=== PATIENT | female | born 1970 | race Caucasian/White ===

== ENCOUNTER 2017-04-18 22:03 | Inpatient (IN) | payer BC ==
--- NOTE | ~2017-04-18 | HP ---
History And Physical [id number] [place]. [address] NAME: CHRISTINA VÁSQUEZ : 74 STATUS : ADM IN [facility]#: [id number] AGE: 46 ADM/REG DATE : 04/19/17 MR#: [id number] REPORT SERV DATE: 04/19/17 DICTATED BY: ROBERT COLLADO DATE: 04/19/17 REPORT STATUS : Draft TRANSCRIBED BY: MODShaggy DATE: 04/19/17 DATE OF ADMISSION: 04/19/2017 POINT OF ENTRY: [facility] Emergency Department CHIEF COMPLAINT: Abdominal pain and nausea. HISTORY OF PRESENT ILLNESS: Ms. Vásquez is a 46-year-old female with a history of bladder exstrophy, status post ureterosigmoidostomy who presents to the emergency department today with the acute onset of bilateral lower quadrant left greater than right back pain with associated nausea with radiation of the pain to her back concerning for possible kidney stones. The patient has a history of bladder exstrophy, status post ureterosigmoidostomy at [facility] as a child. This procedure was then complicated by a small-bowel obstruction as a child as well as requirement of a revision of the anastomosis of the ureters and finally a [id number] trans-ureterosigmoidostomy for right-sided ureteral obstruction. The patient has a history of frequent urinary tract infections and pyelonephritis for which she takes antibiotics on as needed basis for. The patient states that she has not had any difficulties with small-bowel obstruction as an adult. Has known history of nephrolithiasis. Beginning at approximately 5:30 this evening, she started to notice some queasiness and nausea and then developed some left greater than right lower quadrant crampy type abdominal pain. This pain then worsened to a 9 to 10 out of 10 in severity, described as a hard abdominal pain, also with radiation to the left lower flank and back region making her concerned this could be recurrence of known history of nephrolithiasis. She denies any fevers, night sweats, chills, or vomiting. Initial evaluation in the emergency department notable for stable vital signs. Labs are unremarkable with a normal white count and normal CMP. CT scan of the abdomen and pelvis shows bilateral nonobstructing nephrolithiasis as well as a high-grade proximal small-bowel obstruction with reported small bowel stool sign, likely secondary to adhesions. Of note, this is a virtual Radiology overnight read, a formal report needs to be followed up in the morning. The patient was subsequently admitted to the Hospitalist Service for further evaluation and management. REVIEW OF SYSTEMS: Comprehensive review of systems, otherwise negative unless listed in history of present illness. PREVIOUS MEDICAL HISTORY: 1. Bladder exstrophy, status post ureterosigmoidostomy with multiple revisions. 2. Nephrolithiasis. 3. History of recurrent pyelonephritis. 4. History of metabolic acidosis, currently on Bicitra. History And Physical [address] [address] NAME: CHRISTINA VÁSQUEZ : 74 STATUS : ADM IN [facility]#: [id number] AGE: 46 ADM/REG DATE : 04/19/17 MR#: [id number] REPORT SERV DATE: 04/19/17 DICTATED BY: ROBERT COLLADO DATE: 04/19/17 REPORT STATUS : Draft TRANSCRIBED BY: MODL DATE: 04/19/17 5. History of small obstruction as a child. 6. Chronic kidney disease stage 2. 7. Gastroesophageal reflux disease. 8. Hypertension. 9. Left breast ductal carcinoma in situ. SURGICAL HISTORY: 1. Ureterosigmoidostomy with subsequent anastomotic revision and [id number] trans- ureterosigmoidostomy. 2. Cystectomy. 3. . 4. Mohs surgery for basal cell carcinoma. 5. Inguinal hernia repair. 6. Left stereotactic breast biopsy. ALLERGIES: TO SCOPOLAMINE AND VANCOMYCIN. HOME MEDICATIONS: 1. Aspirin 81 mg daily. 2. Labetalol 100 mg b.i.d. 3. Protonix 40 mg daily. 4. Sodium bicarb 1350 mg b.i.d. SOCIAL HISTORY: Denies any tobacco, occasional social alcohol use. Denies any illicits. She is an internal medicine physician, works here as the hospitalist. Her is a vascular surgeon here at our facility. FAMILY MEDICAL HISTORY: Father with hypertension as well as Parkinson disease. Siblings with asthma. LABS AND IMAGIN. White count is 6.9, hemoglobin is 10.9, hematocrit is 32.1, platelets 213. 2. Sodium 140, potassium 4.0, chloride 110, carbon dioxide 26, BUN 16, creatinine 1.01, glucose is 92, calcium is 8.5. Protein is 6.4, albumin is 3.8, bilirubin is 0.6, ALT is 28, AST 16, alkaline phosphatase is 44. 3. CT scan of the abdomen and pelvis per overnight virtual radiology read states a high- grade proximal to mid small-bowel obstruction with small bowel stool sign in the lower abdomen, presumably secondary to adhesion. PHYSICAL EXAMINATION: VITAL SIGNS: Temperature is 98.0 degrees Fahrenheit, pulse is 80, respirations 20, saturating 90% on room air, blood pressure 156/97. On recheck, blood pressure now 139/82, pulse of 60 to 70. GENERAL: The patient is awake, alert, in no acute distress. Resting comfortably. She is a well-developed, well-nourished female. is currently at bedside. HEENT: Atraumatic, normocephalic. Moist mucous membranes. Pupils equal, round, and reactive to light and accommodation. Extraocular eye movements intact. No scleral icterus. History And Physical [address] [address] NAME: CHRISTINA VÁSQUEZ : 74 STATUS : ADM IN [facility]#: [id number] AGE: 46 ADM/REG DATE : 04/19/17 MR#: [id number] REPORT SERV DATE: 04/19/17 DICTATED BY: ROBERT COLLADO DATE: 04/19/17 REPORT STATUS : Draft TRANSCRIBED BY: CHRISTINE DATE: 04/19/17 NECK: No jugular venous distention. No carotid bruits. CARDIAC: Regular rate and rhythm. No murmurs or gallops. Normal S1, S2. LUNGS: Clear to auscultation bilaterally. No wheezes, rhonchi, or crackles. ABDOMEN: The patient has multiple abdominal incisions that are well healed and clean, dry, and intact. She has hypoactive almost absent bowel sounds throughout. It is diffusely tender to palpation, more so in the left lower quadrant, but no rebound, guarding, or rigidity. EXTREMITIES: Warm, perfused. No cyanosis, clubbing, or edema. SKIN: Warm and dry. PSYCH: Affect appropriate. NEURO: Alert and oriented x3. Cranial nerves II through XII grossly intact. Speech is normal. Gait not assessed. ASSESSMENT: Ms. Vásquez is a 46-year-old female with a history of multiple intraabdominal surgeries who presents with acute onset of lower quadrant abdominal pain and nausea and found to have evidence of a high-grade small-bowel obstruction. Problem list: 1. High-grade small-bowel obstruction. 2. History of bladder exstrophy, status post ureterosigmoidostomy. PLAN: 1. High-grade small-bowel obstruction. We will admit the patient to the Hospitalist Service. Make the patient nothing by mouth for bowel rest. Provide supportive care with IV fluids, antiemetics, and pain control. We will consult General Surgery in the morning for assistance with management. The patient currently is denying any vomiting and her pain and nausea well controlled with medications. We will hold off on NG tube decompression at this time. We will recheck a KUB in the morning. 2. History of ureterosigmoidostomy. The patient does not have any evidence of pyelonephritis at this time. Her white count is normal. She is afebrile and we suspect that her symptoms are all related to the above mentioned. We will hold off on antibiotics at this time. 3. History of nephrolithiasis. There is evidence of nephrolithiasis on CT imaging, but they are nonobstructing and likely not source of the patient's symptoms. 4. Hypertension. Continue the patient's home antihypertensives. 5. History of metabolic acidosis. Continue the patient's home Bicitra. The patient's bicarb is currently 26. 6. Deep venous thrombosis prophylaxis. Lovenox subcu. CODE STATUS: The patient wishes to be full code. CINDY/CHRISTINE Robert Collado MD History And Physical [address] [address] NAME: CHRISTINA VÁSQUEZ : 74 STATUS : ADM IN [facility]#: [id number] AGE: 46 ADM/REG DATE : 04/19/17 MR#: [id number] REPORT SERV DATE: 04/19/17 DICTATED BY: ROBERT COLLADO DATE: 04/19/17 REPORT STATUS : Draft TRANSCRIBED BY: CHRISTINE DATE: 04/19/17 / [id number] CC: Lee Hedrick M.D.
--- NOTE | ~2017-04-18 | CN ---
Consultation Report [facility] [address] [place]. [address] NAME: CHRISTINA VÁSQUEZ : 74 STATUS : ADM IN [facility]#: [id number] AGE: 46 ADM/REG DATE : 04/19/17 MR#: [id number] REPORT SERV DATE: 04/19/17 DICTATED BY: SARTHAK BAH DATE: 04/19/17 REPORT STATUS : Draft TRANSCRIBED BY: MODL DATE: 04/19/17 CONSULTATION DATE OF CONSULTATION: 04/19/2017 REASON FOR CONSULT: Small bowel obstruction. 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 She has a history of multiple operations for bladder exstrophy including a ureterosigmoidostomy. She has had a previous hospital admission for kidney stones as well as what sound like a partial small bowel obstruction back in 2012. She states that yesterday, she had severe onset of midepigastric pain as well as nausea. She tended to ride this out but the pain worsened, so she came to the [employer]. She has not had any nausea or vomiting, and states that the pain today is a little bit better than it was yesterday. She has had no fever or chills, and states prior to yesterday, she was feeling well. In addition, she did eat what sounds like several carrots yesterday. She has not had any significant diarrhea, although she had a ureterosigmoidostomy that is unchanged in consistency. PAST MEDICAL HISTORY: Bladder exstrophy, pyelonephritis, chronic kidney disease, reflux, hypertension, DCIS. PAST SURGICAL HISTORY: Includes ureterosigmoidostomy with anastomotic revision, cystectomy, C-sections, inguinal hernia repair. MEDICATIONS: Aspirin, labetalol, Protonix, sodium bicarb. SOCIAL HISTORY: The patient is . Denies any recent tobacco use. Drinks occasional alcohol. FAMILY HISTORY: Noncontributory. PHYSICAL EXAMINATION: VITAL SIGNS: She is afebrile. Vital signs are stable. GENERAL: She is awake, alert, very pleasant, 46-year-old white female. HEENT: Grossly normal. NECK: Supple. No palpable masses. HEART: Regular rate and rhythm. LUNGS: Clear. ABDOMEN: Soft and nondistended. Mild left upper quadrant tenderness with palpation. She states this is better previously. No palpable masses. EXTREMITIES: Show no cyanosis, clubbing, or edema. IMAGING: CT of the abdomen, which I have reviewed, shows what looks to be some fecalization Consultation Report [facility] [address] [place] [place] [address] NAME: CHRISTINA VÁSQUEZ : 74 STATUS : ADM IN PAT#: [id number] AGE: 46 ADM/REG DATE : 04/19/17 MR#: [id number] REPORT SERV DATE: 04/19/17 DICTATED BY: SARTHAK BAH DATE: 04/19/17 REPORT STATUS : Draft TRANSCRIBED BY: MODL DATE: 04/19/17 of the small bowel at the mid to proximal jejunum with some dilated small bowel proximal. Laboratory workup is essentially unremarkable. IMPRESSION AND PLAN: 46-year-old white female with the above-mentioned previous abdominal surgeries, now with what looks to be a partial small bowel obstruction, which I suspect is secondary to vegetable matter. I suspect this hopefully will resolve without surgical intervention. Given that her symptoms are slightly improved, we are going to hold off on any further imaging or active workup. If her symptoms are not fully resolved by tomorrow, we will order a Gastrografin study with a small bowel follow-through. This was discussed with her in detail. I think it is okay at this point to sip on water. PITO/CHRISTINE Sarthak Bah M.D. / [id number] CC: Lee Hderick M.D.
--- NOTE | ~2017-04-18 | DS ---
Discharge Summary [id number] [place]. [address] NAME: CHRISTINA ALLEN : 74 STATUS : ADM IN [facility]#: [id number] AGE: 46 ADM/REG DATE : 04/19/17 MR#: [id number] REPORT SERV DATE: 04/20/17 DICTATED BY: Adriana WHITFIELD DATE: 04/20/17 REPORT STATUS : Draft TRANSCRIBED BY: MODL DATE: 04/20/17 ADMISSION DATE: 04/19/2017 DISCHARGE DATE: 04/20/2017 DIAGNOSES AT DISCHARGE: Partial small bowel obstruction, resolved; history of renal stones; history of pyelonephritis; history of iron deficiency anemia; hypertension; and chronic metabolic acidosis. CONSULTATIONS: General Surgery. PROCEDURES: None. BRIEF SUMMARY: 46-year-old female patient admitted with abdominal pain and imaging suggesting bowel obstruction. The patient with multiple previous surgeries due to problems with her ureters and subsequent stenosis. The patient was treated conservatively with bowel rest and IV fluids. General Surgery did see and evaluate the patient. They felt this condition is likely chronic and will not require additional surgery. Over the course of the day with hydration, the patient's symptoms markedly improved. Last evening, she was started on clear liquids. This morning, she ate a regular breakfast without difficulty. She was felt stable to discharge home. Per General Surgery, to be on a low residue diet, and to continue her current home medications. She will follow up with her primary care provider in approximately three to four weeks. Further recommendations for ongoing treatment pending outpatient evaluation. DICTATED BY: Adriana Whitfeild M.D. [facility]/CHRISTINE Adriana Whitfield M.D. / [id number] CC: Lee Hedrick M.D.
[~2017-04-18 22:03] MED LIST: ALLEGRA180 PO; CITRACAL PO; MACRODANTIN 10100 MG PO; MULTIPLE VIT PO; NASONEX NAS; NEXIUM40 PO; PROTONIX PO; SINGULAIR1 PO; SODBICAR10 PO; SYMBICORT 160/41 INH INH; TRANDAT100 PO; UROCIT-K 10 OR; ZYRTEC ALLGY10 MG PO
[2017-04-18 22:42] LABS: BASOPHILS 0.6 %; BASOPHILS ABSOLUTE 0.04 10/3/uL (0.0-0.16); EOSINOPHILS 3.8 %; EOSINOPHILS ABSOLUTE 0.26 10/3/uL (0.0-0.53); ER CBC TAT 0 Hrs 07 Mins; HEMATOCRIT 32.1 % (36.0-48.0); HEMOGLOBIN 10.9 g/dL (12.0-16.0); IMMATURE GRANULOCYTES 0.1 %; IMMATURE GRANULOCYTES ABSOLUTE 0.01 10/3/uL (0.0-0.11); LYMPHOCYTES 32.6 %; LYMPHOCYTES ABSOLUTE 2.23 10/3/uL (0.67-4.30); MEAN CORPUSCULAR HEMOGLOB 29.8 pg (26.0-34.0); MEAN CORPUSCULAR VOLUME 87.7 fL (80-100); MEAN PLATELET VOLUME 8.8 fL (9.2-13.0); MONOCYTES 9.9 %; MONOCYTES ABSOLUTE 0.68 10/3/uL (0.21-1.20); NEUTROPHILS ABSOLUTE 3.63 10/3/uL (2.02-8.40); PLATELET COUNT 213 10/3/uL (150-400); RBC DISTRIBUTION WIDTH 13.9 % (12.0-16.0); RED CELL COUNT 3.66 10/6/uL (4.0-5.6); WHITE BLOOD CELLS 6.9 10/3/uL (4.5-10.5)
[2017-04-18 22:45] LABS: MANUAL DIFF NO %
[2017-04-18 23:01] LABS: A/G RATIO 1.5 (0.7-1.9); ALBUMIN 4.3 G/DL (3.5-5.0); ALKALINE PHOSPHATASE 50 U/L (45-117); BUN (BLOOD UREA NITROGEN) 16 MG/DL (6-23); CALCIUM, SERUM 9.2 MG/DL (8.5-10.4); CHLORIDE, SERUM 110 MMOL/L (96-112); CO2 (CARBON DIOXIDE) 24 MMOL/L (24-34); GFR AFRICAN AMERICAN 71 ML/MIN (>=60); GFR NON AFRICAN AMERICAN 61 ML/MIN (>=60); GLOBULIN 2.8 G/DL (2.5-4.1); GLUCOSE, SERUM 86 MG/DL (60-99); POTASSIUM, SERUM 3.7 MMOL/L (3.5-5.3); SGOT(AST) 18 U/L (5-40); SGPT(ALT) 30 U/L (5-65); SODIUM, SERUM 142 MMOL/L (135-148); TOTAL BILIRUBIN 0.8 MG/DL (0-1.2); TOTAL PROTEIN 7.1 G/DL (6.0-8.5)
[2017-04-19 00:07] LABS: A/G RATIO 1.5 (0.7-1.9); ALBUMIN 3.8 G/DL (3.5-5.0); ALKALINE PHOSPHATASE 44 U/L (45-117); BUN (BLOOD UREA NITROGEN) 16 MG/DL (6-23); CALCIUM, SERUM 8.5 MG/DL (8.5-10.4); CHLORIDE, SERUM 110 MMOL/L (96-112); CO2 (CARBON DIOXIDE) 26 MMOL/L (24-34); CREATININE 1.01 MG/DL (0.55-1.02); GFR AFRICAN AMERICAN 78 ML/MIN (>=60); GFR NON AFRICAN AMERICAN 68 ML/MIN (>=60); GLOBULIN 2.6 G/DL (2.5-4.1); GLUCOSE, SERUM 92 MG/DL (60-99); SGOT(AST) 16 U/L (5-40); SGPT(ALT) 28 U/L (5-65); SODIUM, SERUM 140 MMOL/L (135-148); TOTAL BILIRUBIN 0.6 MG/DL (0-1.2); TOTAL PROTEIN 6.4 G/DL (6.0-8.5)
[2017-04-19] MEDS ORDERED: TRANDAT100 PO (02:03)
[2017-04-19] MEDS ORDERED: SB325 PO (02:03)
[2017-04-19] MEDS ORDERED: PROTONIX PO (02:03)
[2017-04-19] MEDS ORDERED: ASAB PO (02:03)
[2017-04-19 08:06] LABS: BASOPHILS 0.8 %; BASOPHILS ABSOLUTE 0.05 10/3/uL (0.0-0.16); EOSINOPHILS 3.7 %; EOSINOPHILS ABSOLUTE 0.24 10/3/uL (0.0-0.53); HEMATOCRIT 32.2 % (36.0-48.0); IMMATURE GRANULOCYTES 0.2 %; IMMATURE GRANULOCYTES ABSOLUTE 0.01 10/3/uL (0.0-0.11); LYMPHOCYTES 34.8 %; LYMPHOCYTES ABSOLUTE 2.27 10/3/uL (0.67-4.30); MANUAL DIFF NO %; MEAN CORPUS HGB CONC 34.2 g/dL (32.0-36.0); MEAN CORPUSCULAR HEMOGLOB 30.7 pg (26.0-34.0); MEAN CORPUSCULAR VOLUME 89.9 fL (80-100); MONOCYTES 7.7 %; NEUTROPHILS 52.8 %; NEUTROPHILS ABSOLUTE 3.46 10/3/uL (2.02-8.40); PLATELET COUNT 202 10/3/uL (150-400); RBC DISTRIBUTION WIDTH 13.9 % (12.0-16.0); RED CELL COUNT 3.58 10/6/uL (4.0-5.6); WHITE BLOOD CELLS 6.5 10/3/uL (4.5-10.5)
[2017-04-19 08:19] LABS: BUN (BLOOD UREA NITROGEN) 14 MG/DL (6-23); CALCIUM, SERUM 8.6 MG/DL (8.5-10.4); CHLORIDE, SERUM 110 MMOL/L (96-112); CO2 (CARBON DIOXIDE) 22 MMOL/L (24-34); CREATININE 0.99 MG/DL (0.55-1.02); GFR AFRICAN AMERICAN 80 ML/MIN (>=60); GFR NON AFRICAN AMERICAN 69 ML/MIN (>=60); GLUCOSE, SERUM 81 MG/DL (60-99); POTASSIUM, SERUM 3.8 MMOL/L (3.5-5.3); SODIUM, SERUM 138 MMOL/L (135-148)
== END 2017-04-20 11:57 | disposition home or self-care (01) | DRG 389 ==
LOC: ER 22:03 → 5SO 04-19 02:51
PROVIDERS: Emergency Medicine; Internal Medicine
DX: K56.60 Unspecified intestinal obstruction (principal); E87.2 Acidosis; I12.9 Hypertensive chronic kidney disease with stage 1 through stage 4 chronic kidney disease, or unspecified chronic kidney disease; Z87.440 Personal history of urinary (tract) infections; Z87.442 Personal history of urinary calculi; N18.2 Chronic kidney disease, stage 2 (mild); Z79.82 Long term (current) use of aspirin; D50.9 Iron deficiency anemia, unspecified
CPT/HCPCS: 74000; 74176; 80048; 80053; 81001; 85025; 87040; 96365; 96375; 99285; A9270-GY; J1170; J2405; J2543